=== PATIENT | female | born 1970 ===

== ENCOUNTER 2022-07-30 19:12 | Emergency (ER) | payer OTHER ==
[~2022-07-30] VITALS: Ht 149.9 cm; Wt 79.5 kg
[2022-07-30] MEDS ORDERED: SIMV-46 PO (19:35)
[2022-07-30] MEDS ORDERED: ATEN-73 PO (19:35)
[2022-07-30] MEDS ORDERED: TOPI-255 PO (19:35)
[2022-07-30] MEDS ORDERED: LEVO100 PO (19:35)
[2022-07-30] MEDS ORDERED: ACETAMINOPHEN 500 MG TABLET PO ONE (21:30)
[2022-07-31 00:09] VITALS: BP 120/58
== END 2022-07-31 00:34 | disposition home or self-care (01) ==
LOC: EMS 19:14
DX: S32.2XXA Fracture of coccyx, initial encounter for closed fracture (principal); E78.00 Pure hypercholesterolemia, unspecified; I10 Essential (primary) hypertension; E03.9 Hypothyroidism, unspecified; W19.XXXA Unspecified fall, initial encounter; Y93.89 Activity, other specified; Y92.89 Other specified places as the place of occurrence of the external cause; Y99.8 Other external cause status
CPT/HCPCS: 72170; 72220; 99284; 73564-TC; Z7502; Z7610